=== PATIENT | male | born 2000 | race Two or more races ===

== ENCOUNTER 2020-05-18 09:34 | Emergency (ER) | payer SELFPAY ==
[~2020-05-18] VITALS: Ht 160 cm; Wt 59.0 kg
[2020-05-18] MEDS ORDERED: TDAP [DIPH/PERTUSSIS/TET] 0.5 ML VIAL IM ONE ×2 (10:00→10:01)
[2020-05-18 11:28] VITALS: BP 121/78
== END 2020-05-18 11:30 | disposition home or self-care (01) ==
LOC: ER 09:39
DX: S01.01XA Laceration without foreign body of scalp, initial encounter (principal); S16.1XXA Strain of muscle, fascia and tendon at neck level, initial encounter; S70.02XA Contusion of left hip, initial encounter; V32.5XXA Driver of three-wheeled motor vehicle injured in collision with two- or three-wheeled motor vehicle in traffic accident, initial encounter; Y93.89 Activity, other specified; Y92.413 State road as the place of occurrence of the external cause; Y99.8 Other external cause status
CPT/HCPCS: 12001; 70450; 72125; 73503; 90471; 90715; 99285; A6403; 73502